=== PATIENT | male | born 1950 | race Caucasian/White ===

== ENCOUNTER 2023-01-26 09:11 | Outpatient (OUT) | payer MEDICARE, SELFPAY ==
[2023-01-26 09:47] LABS: Basophils Absolute Auto 0.1 10^3/uL (0.0-0.1); Basophils Percent Auto 1.4 % (0.2-2.0); Eosinophils Absolute Auto 0.2 10^3/uL (0.0-0.7); Eosinophils Percent Auto 3.9 % (0.9-7.0); Hematocrit 43.7 % (42.0-54.0); Hemoglobin 14.5 g/dL (14.0-18.0); Immature Granulocytes Abs Auto 0.01 10^3/uL (0.00-0.03); Immature Granulocytes Pct Auto 0.2 % (0.0-0.5); Lymphocytes Absolute Auto 1.3 10^3/uL (1.2-3.8); Mean Corpuscular HGB Conc 33.2 g/dL (29.9-35.2); Mean Corpuscular Hemoglobin 27.9 pg (25.9-34.0); Mean Platelet Volume 10.9 fL (9.5-13.5); Monocytes Absolute Auto 0.4 10^3/uL (0.3-0.8); Monocytes Percent Auto 8.2 % (1.7-12.0); Neutrophils Absolute Auto 3.2 10^3/uL (1.4-6.5); Neutrophils Percent Auto 61.3 % (43.0-75.0); Platelet Count 200 10^3/uL (150-450); Red Cell Distribution Width 13.4 % (11.0-15.0); White Blood Count 5.1 10^3/uL (4.0-11.0)
[2023-01-26 10:31] LABS: Alanine Aminotransferase 42 U/L (16-63); Albumin Level 3.9 g/dL (3.4-5.0); Alkaline Phosphatase 30 U/L (46-116); Anion Gap 13.7; Aspartate Amino Transferase 20 U/L (15-37); BUN Creatinine Ratio 10.8; Bilirubin Direct 0.2 mg/dL (0.0-0.2); Carbon Dioxide 26.6 mmol/L (21.0-32.0); Chloride 102 mmol/L (98-107); Cholesterol 98 mg/dL (<=200); Estimated GFR (African America >60 (>=60); Estimated GFR (Non-African Ame >60 (>=60); Globulin 3.9 g/dL; Glucose 114 mg/dL (74-106); HDL Cholesterol 50 mg/dL (40-60); LDL Cholesterol Calculated 25.4 mg/dL; Potassium 4.3 mmol/L (3.5-5.1); Sodium 138 mmol/L (136-145); Thyroid Stimulating Hormone 2.857 uIU/mL (0.358-3.740); Total Protein 7.8 g/dL (6.4-8.2); Triglycerides 113 mg/dL (<=150); VLDL CHOLESTEROL 22.6 mg/dL
[2023-01-26 12:49] LABS: Prostate Specific Antigen Scrn 2.51 ng/mL (<=4.00)
[2023-01-27 19:42] LABS: Estimated Average Glucose 123 mg/dL; Glycohemoglobin A1C 5.9 % (4.5-6.2)
== END 2023-01-26 09:12 | disposition home or self-care (01) ==
LOC: LAB 09:18
PROVIDERS: PCP Family Medicine; Visit Provider Family Medicine
DX: I10 Essential (primary) hypertension (principal); Z79.899 Other long term (current) drug therapy; I67.9 Cerebrovascular disease, unspecified; Z12.5 Encounter for screening for malignant neoplasm of prostate; E66.9 Obesity, unspecified; Z68.30 Body mass index [BMI] 30.0-30.9, adult; R73.03 Prediabetes
CPT/HCPCS: 36415; 80048; 80061; 80076; 83036; 84443; 85025; G0103

== ENCOUNTER 2024-01-30 08:53 | Outpatient (OUT) | payer MEDICARE, SELFPAY ==
[2024-01-30 09:35] LABS: Basophils Absolute Auto 0.1 10^3/uL (0.0-0.1); Basophils Percent Auto 1.6 % (0.2-2.0); Eosinophils Absolute Auto 0.3 10^3/uL (0.0-0.7); Eosinophils Percent Auto 5.3 % (0.9-7.0); Hematocrit 42.9 % (42.0-54.0); Hemoglobin 14.1 g/dL (14.0-18.0); Immature Granulocytes Abs Auto 0.01 10^3/uL (0.00-0.03); Immature Granulocytes Pct Auto 0.2 % (0.0-0.5); Lymphocytes Absolute Auto 1.5 10^3/uL (1.2-3.8); Lymphocytes Percent Auto 29.2 % (20.5-60.0); Mean Corpuscular HGB Conc 32.9 g/dL (29.9-35.2); Mean Corpuscular Volume 85.1 fL (80.0-94.0); Mean Platelet Volume 11.5 fL (9.5-13.5); Monocytes Absolute Auto 0.5 10^3/uL (0.3-0.8); Monocytes Percent Auto 8.9 % (1.7-12.0); Neutrophils Absolute Auto 2.8 10^3/uL (1.4-6.5); Neutrophils Percent Auto 54.8 % (43.0-75.0); Platelet Count 187 10^3/uL (150-450); Red Blood Count 5.04 10^6/uL (4.70-6.10); White Blood Count 5.1 10^3/uL (4.0-11.0)
[2024-01-30 09:41] LABS: Estimated Average Glucose 114 mg/dL; Glycohemoglobin A1C 5.6 % (4.5-6.2)
[2024-01-30 11:18] LABS: Alanine Aminotransferase 44 U/L (16-63); Albumin Level 3.6 g/dL (3.4-5.0); Alkaline Phosphatase 32 U/L (46-116); Anion Gap 11.5; Aspartate Amino Transferase 20 U/L (15-37); BUN Creatinine Ratio 11.5; Bilirubin Direct 0.2 mg/dL (0.0-0.2); Bilirubin Total 1.5 mg/dL (0.2-1.0); Calcium 8.8 mg/dL (8.5-10.1); Carbon Dioxide 28.5 mmol/L (21.0-32.0); Chloride 103 mmol/L (98-107); Chol HDL Ratio 2.3; Cholesterol 106 mg/dL (<=200); Estimated GFR (African America >60 (>=60); Estimated GFR (Non-African Ame >60 (>=60); Globulin 3.7 g/dL; Glucose 107 mg/dL (74-106); HDL Cholesterol 46 mg/dL (40-60); LDL Cholesterol Calculated 37.4 mg/dL; Sodium 139 mmol/L (136-145); Total Protein 7.3 g/dL (6.4-8.2); Triglycerides 113 mg/dL (<=150); VLDL CHOLESTEROL 22.6 mg/dL
== END 2024-01-30 08:54 | disposition home or self-care (01) ==
LOC: LAB 08:56
PROVIDERS: PCP Family Medicine; Visit Provider Family Medicine
DX: R73.03 Prediabetes (principal); I10 Essential (primary) hypertension; Z79.899 Other long term (current) drug therapy; I67.9 Cerebrovascular disease, unspecified; Z12.5 Encounter for screening for malignant neoplasm of prostate
CPT/HCPCS: 36415; 80048; 80061; 80076; 83036; 85025; G0103

== ENCOUNTER 2025-01-31 08:13 | Outpatient (OUT) | payer MEDICARE, SELFPAY ==
--- OUTSIDE RECORDS SUMMARY | 2025-01-31 08:18 | XMS_ITS | Encounter Summary ---
Author Organization [facility] Address [address] [place] [address] Care Team Providers Care Modeling Teacher Name Role Phone Davidson Lees MD Primary Care Provider [phone] Davidson Lees MD Unavailable Encounter Details Date Type Department Care Team (Late st Contact Info) Description 01/28/2024 External Result Encounter [facility] External Department Unsolicited Davidson Lees MD [address] [place] [address] Social History Tobacco Use Types Packs/Day Years Used Date Smoking Tobacco: Never Smokeless Tobacco: Never [id number] Health Literacy Answer Date Recor ded How often do you need to hav e someone help you when you read instructions, pamphlets, or other written material from your doctor or pharmacy? Never 01/06/2024 Social Connection and Isolation Panel [NHANES] A nswer Date Recorded In a typical week, how many times do you talk on the phone with family, friends, or neighbors? Three times a week 01/06/2024 How often do you get togethe r with friends or relatives? Twice a week 01/06/2024 How often do you attend chur ch or nondenominational services? Never 01/06/2024 Do you belong to any clubs o r organizations such as buddhism groups, unions, fraternal or athletic groups, or school groups? No 01/06/2024 How often do you attend meet ings of the clubs or organizations you belong to? Never 01/06/2024 Are you , , di vorced, , never , or living with a partner? 01/06/2024 AUDIT-C Answer Date Recorded Q1: How often do you have a drink containing alc ohol? Monthly or less 01/06/2024 Q2: How many drinks containi ng alcohol do you have on a typical day when you are drinking? 1 or 2 01/06/2024 Q3: How often do you have si x or more drinks on one occasion? Monthly 01/06/2024 Overall Financial Resource Strain (CARDIA) Answe r Date Recorded How hard is it for you to pa y for the very basics like food, housing, medical care, and heating? Not hard at all 01/06/2024 [facility] - Occupational Stress Questionnaire Answer Date Recorded Do you feel stress - tense, restless, nervous, or anxious, or unable to sleep at night because your mind is troubled all the time - these days? Not at all 01/06/2024 Exercise Vital Sign Answer Date Recorde d On average, how many days pe r week do you engage in moderate to strenuous exercise (like a brisk walk)? 3 days 01/06/2024 On average, how many minutes do you engage in exercise at this level? 30 min 01/06/2024 Hunger Vital Sign Answer Date Recorded Within the past 12 months, y ou worried that your food would run out before you got the money to buy more. Never true 01/06/20 24 Within the past 12 months, t he food you bought just didn't last and you didn't have money to get more. Never true 01/06/2024 PRAPARE - Transportation Answer Date Re corded In the past 12 months, has l ack of transportation kept you from medical appointments or from getting medications? No 12/08 In the past 12 months, has l ack of transportation kept you from meetings, work, or from getting things needed for daily living? No 01/06/2024 Housing Stability Vital Sign Answer Bud e Recorded In the last 12 months, was t here a time when you were not able to pay the mortgage or rent on time? No 01/06/2024 In the past 12 months, how m any times have you moved where you were living? 2 01/06/2024 At any time in the past 12 m [facility], were you homeless or living in a intermediate (including now)? No 01/06/2024 Sex and Gender Information Value Date Recorded Sex Assigned at Not on file Legal Sex Male 7:28 PM EDT Gender Identity Not on file Sexual Orientation Not on file documented as of this encounter Plan of Treatment Upcoming Encounters Date Type Department Care Team (Late st Contact Info) Description 07/12/2025 9:30 AM EST Office Visit [facility] [address] [place] [address] Davidson Lees MD [address] [place] [address] documented as of this encounter Procedures Procedure Name Priority Date/Time Associated Diagnosis Comments VASC US PVR/SEGMENTAL PRESSURES LOWER 01/28/2024 2:43 PM EDT documented in this encounter Results * VASC US PVR/SEGMENTAL PRESSURES LOWER (01/28/2024 2:43 PM EDT) Anatomical Region Laterality Modality Right Ultrasound 01/28/2024 2:43 PM EDT Impressions 01/28/2024 2:46 PM EDT NO HEMODYNAMICALLY SIGNIFICANT PERIPHERAL VASCULAR OCCLUSIVE DISEASE AT REST IN EITHER LOWER EXTREMITY. Impression dictated by: Markus Haywood M.D.01/28/2024 2:44 PM Dictation Location: [place] [address] Tech: Reanna Howell Transcribed By: ARVIN 01/28/24 1444 Dictated By: Markus Haywood MD 01/28/24 1443 Signed By: <Electronically signed by MD Markus Haywood in OV> 01/28/24 1444 Narrative 01/28/2024 2:46 PM EDT [facility] [place] [address] Ultrasound Report Signed Patient: Alfred Cooper MR#: [id number] : 1950 Acct:[id number] Age/Sex: 73 / M ADM Date: 01/28/24 Loc: Room: Type: [facility] Attending Dr: Davidson Lees MD Ordering Provider: Davidson Lees MD Date of Service: 01/28/24 US/US arterial pvr rest LE: I67.9, I73.9 Copies to: Davidson Lees MD LOWER EXTREMITY SEGMENTAL ARTERIAL DOPSCAN (PVR) INDICATION: Leg pain PROCEDURE: Right arm blood pressure is 124 , left is 128 . Pressures throughout the right leg are 157 at the low thigh, 158 at the calf, 152 at the ankle using the posterior tibial artery, and 138 at the ankle using the dorsalis pedis artery with ankle-brachial index of 1.19 1.08 . Pressures throughout the left leg are 157 at the low thigh, 138 at the calf and 137 at the ankle using the posterior tibial artery, and 124 at the ankle using the dorsalis pedis artery with ankle-brachial index of 1.07 0.97 . Wave forms by plethysmography are normal. US/US arterial pvr rest LE Procedure Note Markus Haywood MD - 01/28/2024 [facility] Main [place] [address] [place] [address] Ultrasound Report Signed Patient: Alfred Cooper LMR#: [id number] : 1950Acct:[id number] Age/Sex: 73 / MADM Date: 01/28/24 Loc: Room:Type: [facility] Attending Dr: Davidson Lees MD Ordering Provider: Davidson Lees MD Date of Service: 01/28/24 US/US arterial pvr rest LE: I67.9, I73.9 Copies to: Davidson Lees MD LOWER EXTREMITY SEGMENTAL ARTERIAL DOPSCAN (PVR) INDICATION: Leg pain PROCEDURE: Right arm blood pressure is 124 , left is 128 . Pressuresthroughout the right leg are 157 at the low thigh, 158 at the calf, 152 at the ankle usingthe posterior tibial artery, and 138 at the ankle using the dorsalis pedis artery withankle-brachial index of 1.19 1.08 . Pressures throughout the left leg are 157 at the low thigh, 138 atthe calf and 137 at the ankle using the posterior tibial artery, and 124 at the ankle using thedorsalis pedis artery with ankle-brachial index of 1.07 0.97 . Wave forms by plethysmography are normal. US/US arterial pvr rest LE IMPRESSION: NO HEMODYNAMICALLY SIGNIFICANT PERIPHERAL VASCULAR OCCLUSIVE DISEASE ATREST IN EITHER LOWER EXTREMITY. Impression dictated by: Markus Haywood M.D.01/28/2024 2:44 PM Dictation Location: [place] [address] Tech: Reanna Rodriguezgerry Transcribed By: ARVIN 01/28/24 1444 Dictated By: Markus Haywood MD 01/28/24 1443 Signed By: <Electronically signed by MD Markus Haywood in OV> 01/28/24 1444 Davidson Lees MD IMG US PROCEDURES Final Result documented in this encounter Visit Diagnoses Not on filedocumented in this encounter Care Teams Modeling 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 Specialty Start Date End Date Davidson Lees MD [address] [place] [address] PCP - General Family Medicine 06/29/23 Davidson Lees MD [address] [place] [address] PCP - ACO Reach 07/15/24 documented as of this encounter
--- OUTSIDE RECORDS SUMMARY | 2025-01-31 08:18 | XMS_ITS | Encounter Summary ---
Author Organization [facility] Address [address] [place] [address] Care Team Providers Care High [employer] Art Teacher Name Role Phone Davidson Lees MD Primary Care Provider [phone] Davidson Lees MD Unavailable Encounter Details Date Type Department Care Team (Late st Contact Info) Description 01/29/2024 [facility] [address] [place] [address] Davidson Lees MD [address] [place] [address] Social History Tobacco Use Types Packs/Day Years [...] often do you attend chur ch or baptist services? Never 01/06/2024 Do you belong to any clubs o r organizations such as mandaeism groups, unions, fraternal or athletic groups, or [...] and heating? Not hard at all 01/06/2024 [facility] - Occupational Stress [...] any time in the past 12 m [facility], were you homeless or living in a correction (including now)? No 01/06/2024 Sex and Gender Information Value Date Recorded Sex Assigned at Not on file Legal Sex Male 7:28 PM EDT Gender Identity Not on file Sexual Orientation Not on file documented as of this encounter Plan of Treatment Upcoming Encounters Date Type Department Care Team (Late st Contact Info) Description 07/12/2025 9:30 AM EST Office Visit [facility] [address] [place] [address] Davidson Lees MD [address] [place] [address] documented as of this encounter Procedures Procedure Name Priority Date/Time Associated Diagnosis Comments VASC US UPPER EXTREMITY ARTERIAL DUPLEX BILATERAL WITH DOPPLER Routine 01/29/2024 9:55 AM EDT documented in this encounter Results * Vascular US upper extremity arterial duplex bilateral with Doppler (01/29/2024 9:55 AM EDT) Anatomical Region Laterality Modality Upper Extremities Ultrasound us Davidson Lees MD IMG US PROCEDURES Final Result documented in this encounter Visit Diagnoses Not on filedocumented in this encounter Care Teams High [employer] Art 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 Specialty Start Date End Date Davidson Lees MD [address] [place] [place] [address] PCP - General Family Medicine 06/29/23 Davidson Lees MD [address] [place] [address] PCP - ACO Reach 07/15/24 documented as of this encounter
--- OUTSIDE RECORDS SUMMARY | 2025-01-31 08:19 | XMS_ITS | Encounter Summary ---
Author Organization [facility] Address [address] [place] [address] Care Team Providers Care Deburring And Tooling Machine Operator Name Role Phone Davidson Lees MD Primary Care Provider [phone] Davidson Lees MD Unavailable Reason for Visit * Reason Comments Med Refill Encounter Details Date Type Department Care Team (Late st Contact Info) Description 01/20[facility]20[facility] [address] [place] [address] Davidson Lees MD [address] [place] [address] Essential hypertension, benign ; Cerebrovascular disease Social History Tobacco Use Types Packs/Day Years [...] often do you attend chur ch or oriental orthodox services? Never 01/06/2024 Do you belong to any clubs o r organizations such as confucianism groups, unions, fraternal or athletic groups, or [...] and heating? Not hard at all 01/06/2024 PHQ-2 Answer Date Recorded Patient Health Questionnaire-2 Score 0 01/09/2025 [facility] - Occupational Stress [...] any time in the past 12 m [facility], were you homeless or living in a detention (including now)? No 01/06/2024 Sex and Gender Information Value Date Recorded Sex Assigned at Not on file Legal Sex Male 7:28 PM EDT Gender Identity Not on file Sexual Orientation Not on file documented as of this encounter Miscellaneous Notes * Telephone Encounter - OTILIO GORE - 01/20/2025 10:19 AM EDT MEDICATION SENT TO [facility] documented in this encounter Plan of Treatment Upcoming Encounters Date Type Department Care Team (Late st Contact Info) Description 07/12/2025 9:30 AM EST [facility] [address] [place] [address] Davidson Lees MD [address] [place] [address] documented as of this encounter Visit Diagnoses Diagnosis Essential hypertension, benign Essential hypertension, benign Cerebrovascular disease Unspecified cerebrovascular disease documented in this encounter Additional Health Concerns Assessment Noted Time PHQ-9 Depression Total Score: 2 01/10/20 25 9:00 AM EDT documented as of this encounter Care Teams Deburring And Tooling Machine Operator Relationship Specialty Start Date End Date Davidson Lees MD [address] [place] [address] PCP - General Family Medicine 06/29/23 Davidson Lees MD [address] [place] [address] PCP - ACO Reach 07/15/24 documented as of this encounter
--- OUTSIDE RECORDS SUMMARY | 2025-01-31 08:19 | XMS_ITS | Clinical Summary ---
Author Organization [facility] Address [address] [place] [address] [place] [address] Care Team Providers Care Oil Well Driller Name Role Phone Davidson Lees MD Primary Care Provider [phone] Davidson Lees MD Unavailable Allergies No known active allergies Medications loratadine (Claritin) 10 MG tablet Take 10 mg by mouth Daily Active atorvastatin (Lipitor) 40 MG tabletIndicati ons:Cerebrovas cular disease TAKE 1 TABLET BY MOUTH AT BEDTIME 90 tablet 5 Active lisinopril 5 MG tabletIndicati ons:Essential hypertension, benign Take 1 tablet by mouth once daily 90 tablet 5 Active oxybutynin XL (Ditropan-XL) 15 MG 24 hr tabletIndicati ons:Essential hypertension, benign Take 1 tablet by mouth once daily 90 tablet 5 Active clopidogrel (Plavix) 75 MG tabletIndicati ons:Cerebrovas cular disease Take 1 tablet by mouth once daily 90 tablet 5 Active atorvastatin (Lipitor) 40 MG tabletIndicati ons:Cerebrovas cular disease Take 1 tablet (40 mg) by mouth at bedtime 90 tablet 3 5 01/20/20 25 Discontinued lisinopril 5 MG tabletIndicati ons:Essential hypertension, benign Take 1 tablet by mouth once daily 90 tablet 5 01/21/20 25 Discontinued clopidogrel (Plavix) 75 MG tabletIndicati ons:Cerebrovas cular disease Take 1 tablet by mouth once daily 90 tablet 5 01/21/20 25 Discontinued oxybutynin XL (Ditropan-XL) 15 MG 24 hr tabletIndicati ons:Essential hypertension, benign Take 1 tablet by mouth once daily 90 tablet 5 01/21/20 25 Discontinued Active Problems Problem Noted Date Diagnosed Date Medicare annual wellness visit, subsequent 01/09 Assessment & Plan (01/09/2025 10:32 AM EDT): Due for labs. Discussed proper diet and regular aerobic exercise. Need aerobic exercise 5-6 days a week for 30 minutes at a time. Smaller portions and limit total calories. Cologuard normal July 2024. Tetanus every 10 years. Advised not to smoke. Class 1 obesity with serious comorbidity and body mass index (BMI) of 31.0 to 31.9 in adult 01/09/2025 Essential hypertension, benign 06/29/2023 Assessment & Plan (07/11/2024 10:33 AM EST): BP controlled and monitor PRN. Assessment & Plan (01/12/2024 10:50 AM EDT): BP controlled and monitor PRN. Assessment & Plan (06/29/2023 2:07 PM EST): BP controlled and monitor PRN. Cerebrovascular disease 06/29/2023 Prediabetes 06/29/2023 Seasonal allergic rhinitis due to pollen 024 Assessment & Plan (07/11/2024 10:33 AM EST): Symptoms controlled with medication and continue. Assessment & Plan (01/12/2024 10:50 AM EDT): Symptoms controlled with medication and continue. Assessment & Plan (06/29/2023 2:08 PM EST): Symptoms controlled with medication and continue. Encounter for long-term (current) use of medicat ions 06/29/2023 Screening PSA (prostate specific antigen) 2023 Stress incontinence, male 06/29/2023 Assessment & Plan (07/11/2024 10:33 AM EST): Urinary symptoms stable and continue oxybutynin. Assessment & Plan (01/12/2024 10:50 AM EDT): Urinary symptoms stable and continue oxybutynin. Assessment & Plan (06/29/2023 2:08 PM EST): Urinary symptoms stable and continue oxybutynin. Resolved Problems Problem Noted Date Diagnosed Date Resolved Date Intermittent claudication 01/12/2024 Assessment & Plan (01/12/2024 10:51 AM EDT): C/o fatigue with activity and possible PVD. Check arterial US. Continue lipitor and plavix. Encounters Date Type Department Care Team Description 01/20/2025 Refill [facility] [address] [place] [address] Davidson Lees MD Essential hypertension, benign ; Cerebrovascular disease 01/19/2025 Refill [facility] [address] [place] [address] Davidson Lees MD Cerebrovascular disease 01/09/2025 9:30 AM EDT Office Visit [facility] [address] [place] [phone] Davidson Lees MD Medicare annual wellness visit, subsequent (Primary Dx); Prediabetes; Class 1 obesity due to excess calories with serious comorbidity and body mass index (BMI) of 31.0 to 31.9 in adult; Encounter for long-term (current) use of medications; Essential hypertension, benign ; Screening PSA (prostate specific antigen) 01/09/2025 Bamboo flowsheet [facility] [address] [place] [phone] Davdison Lees MD from Last 3 Months Family History Medical History Relation Name Comments Cancer Father Prostate cancer Father Diabetes Mother Hypertension Mother Relation Name Status Comments Father Mother Social History Tobacco Use Types Packs/Day Years [...] often do you attend chur ch or jew services? Never 01/06/2024 Do you belong to any clubs o r organizations such as restorationism groups, unions, fraternal or athletic groups, or [...] Recorded Patient Health Questionnaire-2 Score 0 01/09/2025 [facility]at ional Health - Occupational [...] time in the past 12 m [facility], were you homeless or living in a fpc (including now)? No 01/06/2024 Sex and Gender Information Value Date Recorded Sex Assigned at Not on file Legal Sex Male 7:28 PM EDT Gender Identity Not on file Sexual Orientation Not on file Last Filed Vital Signs Vital Sign Reading Time Taken Comments Blood Pressure 136/68 01/09/2025 9:50 AM EDT Pulse 79 01/09/2025 9:50 AM EDT Temperature 36.2 C (97.1 F) 01/09/2025 9:50 AM EDT Respiratory Rate 18 01/09/2025 9:50 AM EDT Oxygen Saturation 97% 01/09/2025 9:50 AM EDT Inhaled Oxygen Concentration - - Weight 97.1 kg (214 lb) 01/09/2025 9:50 AM EDT Height 175.3 cm (5' 9 ) 01/09/2025 9:50 AM EDT Body Mass Index 31.6 01/09/2025 9:50 AM EDT Plan of Treatment Upcoming Encounters Date Type Department Care Team (Late st Contact Info) Description 07/12/2025 9:30 AM EST Office Visit [facility] [address] [place] [address] Davidson Lees MD [address] [place] [address] Health Maintenance Due Date Last Done Comments CT Colonography 1950 Colonoscopy 1950 FIT 1950 FOBT 1950 Sigmoidoscopy 1950 Pneumococcal Vaccine: 65+ Years (1 of 1 - PCV) Influenza Vaccine (#1) 2025 Medicare Annual Wellness (AWV) 01/09/2026 01/09/2025 Colorectal Cancer Screening 07/15/2027 FIT-DNA 07/15/2027 07/15/2024 Procedures Procedure Name Priority Date/Time Associated Diagnosis Comments LAB COLOGUARD COLON CANCER SCREEN Routine 07/15/2024 9:00 AM EST Colon cancer screening from Last 3 Months or Most Recently Relevant to Health Maintenance Results * Cologuard?? colon cancer screening (07/15/2024 9:00 AM EST) NONINV COLON CA DNA+OCC BLD SCRN STL-IMP Negative Negative 07/21/2024 1:01 PM EST [facility] (CLIA #:[id number]) Comment: NEGATIVE TEST RESULT. A negative Cologuard result indicates a low likelihood that a colorectal cancer (CRC) or advanced adenoma (adenomatous polyps with more advanced pre-malignant features) is present. The chance that a person with a negative Cologuard test has a colorectal cancer is less than 1 in 1500 (negative predictive value >99.9%) or has an advanced adenoma is less than 5.3% (negative predictive value 94.7%). These data are based on a prospective cross-sectional study of 10,000 individuals at average risk for colorectal cancer who were screened with both Cologuard and colonoscopy. (Devan Boogie al, N Engl J Med 2014;370(14):6732-0120) The normal value (reference range) for this assay is negative. COLOGUARD RE-SCREENING RECOMMENDATION: Periodic colorectal cancer screening is an important part of preventive healthcare for asymptomatic individuals at average risk for colorectal cancer. Following a negative Cologuard result, the [place] [employer] and U.S. Multi-Society Task Force screening guidelines recommend a Cologuard re-screening interval of 3 years. References: [place] [employer] Guideline for Colorectal Cancer Screening: https://www.cancer.org/cancer/yqwei-htnrjx-gwdqqk/orkunnjty-llkshxpsi-qhlcfee/ac s-rec ommendations.html.; Dwayne DK, Renee CR, Fred AugustK, Colorectal Cancer Screening: Recommendations for Physicians and Patients from the U.S. Multi-Society Task Force on Colorectal Cancer Screening , Am J Gastroenterology 2017; 112:1110-8092. TEST DESCRIPTION: Composite algorithmic analysis of stool DNA-biomarkers with hemoglobin immunoassay. Quantitative values of individual biomarkers are not reportable and are not associated with individual biomarker result reference ranges. Cologuard is intended for colorectal cancer screening of adults of either sex, 45 years or older, who are at average-risk for colorectal cancer (CRC). Cologuard has been approved for use by the U.S. FDA. The performance of Cologuard was established in a cross sectional study of average-risk adults aged 50-84. Cologuard performance in patients ages 45 to 49 years was estimated by sub-group analysis of near-age groups. Colonoscopies performed for a positive result may find as the most clinically significant lesion: colorectal cancer [4.0%], advanced adenoma (including sessile serrated polyps greater than or equal to 1cm diameter) [20%] or non- advanced adenoma [31%]; or no colorectal neoplasia [45%]. These estimates are derived from a prospective cross-sectional screening study of 10,000 individuals at average risk for colorectal cancer who were screened with both Cologuard and colonoscopy. (Devan Boogie al, N Engl J Med 2014;370(14):9228-1664.) Cologuard may produce a false negative or false positive result (no colorectal cancer or precancerous polyp present at colonoscopy follow up). A negative Cologuard test result does not guarantee the absence of CRC or advanced adenoma (pre-cancer). The current Cologuard screening interval is every 3 years. ([place] [employer] and U.S. Multi-Society Task Force). Cologuard performance data in a 10,000 patient pivotal study using colonoscopy as the reference method can be accessed at the following location: www.EasyRun/results. Additional description of the Cologuard test process, warnings and precautions can be found at www.RetailVectorrd.com. Stool specimen (specimen) 07/15/2024 9:00 AM EST 07/16/2024 7:30 AM EST Davidson Lees MD LAB MOLECULAR DIAGNOSTICS ORDERA SONIA Final Result [facility] (CLIA #:[id number]) [place] [address], from Last 3 Months or Most Recently Relevant to Health Maintenance Insurance MEDICARE T Care Teams Oil Well Driller Relationship Specialty Start Date End Date Davidson Lees MD [address] [place] [address] PCP - General Family Medicine 06/29/23 Davidsno Lees MD [address] [place] [address] [facility] - ACO Reach 07/15/24
--- OUTSIDE RECORDS SUMMARY | 2025-01-31 08:19 | XMS_ITS | Encounter Summary ---
Author Organization [facility] Address [address] [place] [address] Care Team Providers Care Control Panel Assembler Name Role Phone Davidson Lees MD Primary Care Provider [phone] Davidson Lees MD Unavailable Reason for Visit * Reason Comments Med Refill Encounter Details Date Type Department Care Team (Late st Contact Info) Description 01/19/2025 [facility] [address] [place] [address] Davidson Lees MD [address] [place] [id number] Cerebrovascular disease Social History Tobacco Use Types [...] often do you attend chur ch or episcopalian services? Never 01/06/2024 Do you belong to any clubs o r organizations such as alevism groups, unions, fraternal or athletic groups, or [...] Recorded Patient Health Questionnaire-2 Score 0 01/09/2025 [facility] Occup[facility] - Occupational Stress [...] any time in the past 12 m [facility], were you homeless or living in a skilled nursing (including now)? No 01/06/2024 Sex and Gender Information Value Date Recorded Sex Assigned at Not on file Legal Sex Male 7:28 PM EDT Gender Identity Not on file Sexual Orientation Not on file documented as of this encounter Miscellaneous Notes * Telephone Encounter - OTILIO GORE - 01/19/2025 3:17 PM EDT [facility] [place] documented in this encounter Plan of Treatment Upcoming Encounters Date Type Department Care Team (Late st Contact Info) Description 07/12/2025 9:30 AM EST Office [facility] [address] [place] [address] Davidson Lees MD [address] [place] [phone] documented as of this encounter Visit Diagnoses Diagnosis Cerebrovascular disease Unspecified cerebrovascular disease documented in this encounter Additional Health Concerns Assessment Noted Time PHQ-9 Depression Total Score: 2 01/10/20 25 9:00 AM EDT documented as of this encounter Care Teams Control Panel Assembler Relationship Specialty Start Date End Date Davidson Lees MD [address] [place] [phone] PCP - General Family Medicine 06/29/23 Davidson Lees MD [address] [place] [phone] PCP - ACO Reach 07/15/24 documented as of this encounter
--- OUTSIDE RECORDS SUMMARY | 2025-01-31 08:21 | XMS_ITS | CCD ---
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 Name Role Phone DR DAVIDSON VELASCO Admitting Unavailable ROD, DR DAVIDSON Lamar Attending Unavailable ROD, DR DAVIDSON Lamar Primary Care Unavailable ROD, DR DAVIDSON Lamar Consulting Unavailable ROD, DR DAVIDSON Lamar Admitting Unavailable ROD, DR DAVIDSON Lamar Attending Unavailable ROD, DR DAVIDSON Lamar Primary Care Unavailable ROD, DR DAVIDSON Lamar Consulting Unavailable MD Davidson Velasco Attending Provider [phone] Davidson Velasco Attending Unavailable Davidson Velasco Admitting Unavailable Davidson Velasco MD Primary Care Provider Davidson Velasco MD Unavailable DAVIDSON VELASCO Attending Unavailable ROD, DAVIDSON Attending Unavailable DAVIDSON VELASCO Attending Unavailable Medications Current Medications Medication Drug Class(es) Dates Sig (Normalized) Sig (Original) atorvastatin 40 mg oral tablet (10 sources) HMG-CoA Reductase Inhibitor Start: 08-01-2024 End: 08-01-2024 take 1 tablet by mouth at bedtime atorvastatin (Lipitor) 40 MG tablet Indications: Cerebrovascular disease Take 1 tablet (40 mg) by mouth at bedtime 90 tablet 3 08/01/2024 Active Start: 07-25-2024 take 1 tablet by josue th at bedtime atorvastatin (Lipitor) 40 MG tablet Indications: Cerebrovascular disease TAKE 1 TABLET BY MOUTH AT BEDTIME 90 tablet 07/25/2024 Active Start: 01-26-2024 take 1 tablet by josue th at bedtime atorvastatin (Lipitor) 40 MG tablet Indications: Cerebrovascular disease TAKE 1 TABLET BY MOUTH AT BEDTIME 90 tablet 01/26/2024 Active clopidogrel 75 mg oral tablet (10 sources) [id number] Platelet Inhibitor Start: 10-28-2024 take 1 tablet by mouth once daily clopidogrel (Plavix) 75 MG tablet Indications: Cerebrovascular disease Take 1 tablet by mouth once daily 90 tablet 10/28/2024 Active Start: 07-25-2024 End: 07-25-2024 take 1 tablet by mouth once daily clopidogrel (Plavix) 75 MG tablet Indications: Cerebrovascular disease Take 1 tablet (75 mg) by mouth Daily 90 tablet 07/25/2024 Active Start: 01-26-2024 take 1 tablet by josue th once daily clopidogrel (Plavix) 75 MG tablet Indications: Cerebrovascular disease Take 1 tablet by mouth once daily 90 tablet 01/26/2024 Active lisinopril 5 mg oral tablet (10 sources) Angiotensin Converting Enzyme Inhibitor Start: 10-28-2024 take 1 tablet by mouth once daily lisinopril 5 MG tablet Indications: Essential hypertension, benign Take 1 tablet by mouth once daily 90 tablet 10/28/2024 Active Start: 07-25-2024 End: 07-25-2024 take 1 tablet by mouth once daily lisinopril 5 MG tablet Indications: Essential hypertension, benign (CMS/HCC) Take 1 tablet (5 mg) by mouth Daily 90 tablet 07/25/2024 Active Start: 01-26-2024 take 1 tablet by josue th once daily lisinopril 5 MG tablet Indications: Essential hypertension, benign (CMS/HCC) Take 1 tablet by mouth once daily 90 tablet 01/26/2024 Active loratadine 10 mg oral tablet (9 sources) take 1 tablet by mouth once daily loratadine (Claritin) 10 MG tablet Take 10 mg by mouth Daily Active 24 hr oxybutynin chloride 15 mg extended release oral tablet (10 sources) Cholinergic Muscarinic Antagonist Start: 10-28-2024 take 1 tablet by mouth once daily oxybutynin XL (Ditropan-XL) 15 MG 24 hr tablet Indications: Essential hypertension, benign Take 1 tablet by mouth once daily 90 tablet 10/28/2024 Active Start: 07-25-2024 End: 07-25-2024 take 1 tablet by mouth once daily oxybutynin XL (Ditropan-XL) 15 MG 24 hr tablet Indications: Essential hypertension, benign (CMS/HCC) Take 1 tablet (15 mg) by mouth Daily 90 tablet 07/25/2024 Active Start: 01-26-2024 take 1 tablet by josue th once daily oxybutynin XL (Ditropan-XL) 15 MG 24 hr tablet Indications: Essential hypertension, benign (CMS/HCC) Take 1 tablet by mouth once daily 90 tablet 01/26/2024 Active Problems Active Problems Problem Classification Problem Date Documented Date Episodic/Chronic Diabetes mellitus without complication (11 sources) Prediabetes; Translations: [Prediabetes] Onset: 06-29-2023 06-29-2023 Episodic Essential hypertension (18 sources) Essential (primary) hypertension; Translations: [Benign essential hypertension] Onset: 06-26-2021 Chronic Genitourinary symptoms and ill-defined conditions (11 sources) Male urinary stress incontinence; Translations: [Stress incontinence (female) (male)] Onset: 06-29-2023 06-29-2023 Chronic Other aftercare (1 source) Other jail (current) drug therapy; Translations: [OTH SNF CURRENT DRUG THERAPY] Onset: 06-28-2021 Episodic Other aftercare (10 sources) Long-term current use of drug therapy; Translations: [Other intensive care anaesthetist (current) drug therapy] Onset: 06-29-2023 06-29-2023 Episodic Other and ill-defined cerebrovascular disease (1 source) Cerebrovascular disease, unspecified; Translations: [CEREBROVASCULAR DISEASE UNSPECIFIED] Onset: 06-28-2021 Chronic Other and ill-defined cerebrovascular disease (11 sources) Cerebrovascular disease; Translations: [Cerebrovascular disease, unspecified] Onset: 06-29-2023 06-29-2023 Chronic Other nutritional; endocrine; and metabolic disorders (2 sources) Obesity caused by energy imbalance; Translations: [Class 1 obesity due to excess calories with serious comorbidity and body mass index (BMI) of 31.0 to 31.9 in adult] 01-09-2025 Chronic Other nutritional; endocrine; and metabolic disorders (2 sources) Obesity; Translations: [Class 1 obesity with serious comorbidity and body mass index (BMI) of 31.0 to 31.9 in adult] Onset: 01-09-2025 01-09-2025 Chronic Other screening for suspected conditions (not mental disorders or infectious disease) (14 sources) Encounter for screening for malignant neoplasm of prostate; Translations: [Patient encounter status] Onset: 06-28-2021 06-29-2023 Episodic Other upper respiratory disease (11 sources) Allergic rhinitis due to pollen; Translations: [Allergic rhinitis due to pollen] Onset: 06-29-2023 06-29-2023 Chronic Unclassified (3 sources) CONTACT W/AND (SUSP) EXPOS COVID-19; Translations: [CONTACT W/AND (SUSP) EXPOS COVID-19] Onset: 07-10-2021 Past or Other Problems Problem Classification Problem Date Documented Da te Episodic/Chronic Mood disorders (2 sources) Mood disorders Onset: 01-09-2025 01-09-2025 Other aftercare (1 source) Patient encounter status; Translations: [Other jail (current) drug therapy] Onset: 06-29-2023 06-29-2023 Episodic Peripheral and visceral atherosclerosis (10 sources) Peripheral vascular disease, unspecified; Translations: [Intermittent claudication] Onset: 01-12-2024 Resolved: 07-11-2024 01-12-2024 Chronic Unclassified (1 source) CONTACT W/AND (SUSP) EXPOS COVID-19; Translations: [CONTACT W/AND (SUSP) EXPOS COVID-19] Onset: 07-08-2021 Results Test Name Value Interpretation Reference Range Facil ity ALL CBC WITH AUTO DIFFon BASOPHILS ABSOLUTE AUTO 0.1 [facility] Basophils/100 WBC (Bld) 1.6 % 0.2 - 2.0 % [facility] Eosinophils/100 WBC (Bld) 5.3 % 0.9 - 7.0 % [facility] Erythrocyte distribution width (RBC) [Ratio] 13.0 % 11.0 - 15.0 % [facility] Hematocrit (Bld) [Volume fraction] 42.9 % 42.0 - 54.0 % [facility] Hemoglobin (Bld) [Mass/Vol] 14.1 g/dL 14.0 - 18.0 g/dL [facility] IMMATURE GRANULOCYTES ABS AUTO 0.01 [facility] Immature granulocytes/100 WBC (Bld) 0.2 % 0.0 - 0.5 % [facility] LYMPHOCYTES ABSOLUTE AUTO 1.5 [facility] Lymphocytes/100 WBC (Bld) 29.2 % 20.5 - 60.0 % [facility] MCH (RBC) [Entitic mass] 28.0 pg 25.9 - 34.0 pg [facility] MCHC (RBC) [Mass/Vol] 32.9 g/dL 29.9 - 35.2 g/dL [facility] MCV (RBC) [Entitic vol] 85.1 fL 80.0 - 94.0 fL [facility] MONOCYTES ABSOLUTE AUTO 0.5 [facility] Monocytes/100 WBC (Bld) 8.9 % 1.7 - 12.0 % [facility] NEUTROPHILS ABSOLUTE AUTO 2.8 [facility] Neutrophils/100 WBC (Bld) 54.8 % 43.0 - 75.0 % [facility] Platelet mean volume (Bld) [Entitic vol] 11.5 fL 9.5 - 13.5 fL [facility] TBH EO # 0.3 [facility] PLT 187 [facility] RBC 5.04 [facility] WBC 5.1 [facility] US arterial pvr rest Dirk US arterial pvr rest LE [facility] Main [place] [address] [place] [address] Ultrasound Report Signed Patient: Alfred Cooper MR#: [id number] : 1950 Acct:[id number] Age/Sex: 73 / M ADM Date: 01/28/24 Loc: Room: Type: [facility] Attending Dr: Davidson Velasco MD Ordering Provider: Davidson Velasco MD Date of Service: 01/28/24 US/US arterial pvr rest LE: I67.9, I73.9 Copies to: Davidson Velasco MD LOWER EXTREMITY SEGMENTAL ARTERIAL DOPSCAN (PVR) [...] Markus Haywood M.D.01/28/2024 2:44 PM Dictation Location: [facility] Tech: Reanna Rodriguezlars Transcribed By: ARVIN 01/28/241443 Dictated By: Markus Haywood MD 01/28/241442 Signed By: 01/28/241443 Normal [facility]10 SARS-CoV-2 (COVID-19) RNA TAMIE+probe Ql (Unsp spec) Not detected Normal NOT DETECTED [facility] Comment on above: Result Comment: This test is not yet approved or cleared by the [place] FDA. When there are no FDA-approved or cleared tests available, and other criteria are met, FDA can make tests available under an emergency access mechanism called an Emergency Use Authorization (EUA). The EUA for this test is supported by the [place] of Health and Human Service's (HHS's) declaration that circumstances exist to justify the emergency use of in vitro diagnostics for the detection and/or diagnosis of the virus that causes COVID-19. This EUA will remain in effect (meaning this test can be used) for the duration of the COVID-19 declaration justifying emergency of IVDs, unless it is terminated or revoked by FDA (after which the test may no longer be used). When diagnostic testing is negative, the possibility of a false negative should be considered in the context of a patient's recent exposures and the presence of clinical signs and symptoms consistent with SARS-CoV-2. Performed By: #### C VDTB #### [facility] [address] [place] [address] Dr. Maximilian Baum CBC AUTO DIFFon 06-26-2021 BASO # 0.1 103/ul Normal 0.0-0.1 [facility] Comment on above: Performed By: #### C BC #### [facility] [address] [place] [address] Dr. Maximilian Baum Basophils/100 WBC (Bld) 1.3 % Normal 0.2-2.0 [facility] Comment on above: Performed By: #### C BC #### [facility] [address] [place] [address] Dr. Maximilian Baum EO # 0.2 103/ul Normal 0.0-0.7 [facility] Comment on above: Performed By: #### C BC #### [facility] [address] [place] [address] Dr. Maximilian Baum Eosinophils/100 WBC (Bld) 4.1 % Normal 0.9-7.0 [facility] Comment on above: Performed By: #### C BC #### [facility] [address] [place] [address] Dr. Maximilian Baum Erythrocyte distribution width (RBC) [Ratio] 13.5 % Normal 11.0-15.0 [facility] Comment on above: Performed By: #### C BC #### [facility] [address] [place] [address] Dr. Maximilian Baum Hematocrit (Bld) [Volume fraction] 44.1 % Normal 42.0-54.0 [facility] Comment on above: Performed By: #### C BC #### [facility] [address] [place] [address] Dr. Maximilian Baum Hemoglobin (Bld) [Mass/Vol] 14.1 g/dL Normal 14.0-18.0 [facility] Comment on above: Performed By: #### C BC #### [facility] [address] [place] [address] Dr. Maximilian Baum IG # 0.01 10e3/ul Normal 0.00-0.03 [facility] Comment on above: Performed By: #### C BC #### [facility] [address] [place] [address] Dr. Maximilian Baum IG % 0.2 % Normal 0.0-0.5 [facility] Comment on above: Performed By: #### C BC #### [facility] [address] [place] [address] Dr. Maximilian Baum LYMPH # 1.3 103/ul Normal 1.2-3.8 [facility] Comment on above: Performed By: #### C BC #### [facility] [address] [place] [address] Dr. Maximilian Baum Lymphocytes/100 WBC (Bld) 24.9 % Normal 20.5-60.0 [facility] Comment on above: Performed By: #### C BC #### [facility] [address] [place] [address] Dr. Maximilian Baum MANUAL DIFF REQ NO Normal [facility] Comment on above: Performed By: #### C BC #### [facility] [address] [place] [address] Dr. Maximilian Baum MCH (RBC) [Entitic mass] 27.3 pg Normal 25.9-34.0 [facility] Comment on above: Performed By: #### C BC #### [facility] [address] [place] [address] Dr. Maximilian Baum MCHC (RBC) [Mass/Vol] 32.0 g/dL Normal 29.9-35.2 [facility] Comment on above: Performed By: #### C BC #### [facility] [address] [place] [address] Dr. Maximilian Baum MCV (RBC) [Entitic vol] 85.5 fL Normal 80.0-94.0 [facility] Comment on above: Performed By: #### C BC #### [facility] [address] [place] [address] Dr. Maximilian Baum MONO # 0.5 103/ul Normal 0.3-0.8 [facility] Comment on above: Performed By: #### C BC #### [facility] [address] [place] [address] Dr. Maximilian Baum Monocytes/100 WBC (Bld) 8.7 % Normal 1.7-12.0 [facility] Comment on above: Performed By: #### C BC #### [facility] [address] [place] [address] Dr. Maximilian Baum NEUT # 3.3 103/ul Normal 1.4-6.5 [facility] Comment on above: Performed By: #### C BC #### [facility] [address] [place] [address] Dr. Maximilian Baum Neutrophils/100 WBC (Bld) 60.8 % Normal 43.0-75.0 [facility] Comment on above: Performed By: #### C BC #### [facility] [address] [place] [address] Dr. Maximilian Baum Platelet mean volume (Bld) [Entitic vol] 12.0 fL Normal 9.5-13.5 [facility] Comment on above: Performed By: #### C BC #### [facility] [address] [place] [address] Dr. Maximilian Baum PLT 179 103/ul Normal 150-450 [facility] Comment on above: Performed By: #### C BC #### [facility] [address] [place] [address] Dr. Maximilian Baum RBC 5.16 106/ul Normal 4.70-6.10 [facility] Comment on above: Performed By: #### C BC #### [facility] [address] [place] [address] Dr. Maximilian Baum WBC 5.4 103/ul Normal 4.0-11.0 [facility] Comment on above: Performed By: #### C BC #### [facility] [address] [place] [address] Dr. Maximilian Baum LIPID PROFILEon 06-26-2021 CHOL-HDL RATIO NORM SEE BELOW Normal [facility] Comment on above: Result Comment: 3.3 - 4.4 LOW RISK 4.4 - 7.1 AVERAGE RISK 7.1 - 11.0 MODERATE RISK >11.0 HIGH RISK Performed By: #### L IPID, AST, BMP, ALT #### [facility] [address] [place] [address] Dr. Maximilian Baum Cholesterol [Mass/Vol] 97 mg/dL Normal <=200 [facility] Comment on above: Performed By: #### L IPID, AST, BMP, ALT #### [facility] [address] [place] [address] Dr. Maximilian Baum Cholesterol in HDL [Mass/Vol] 42 mg/dL Normal [facility] Comment on above: Performed By: #### L IPID, AST, BMP, ALT #### [facility] [address] [address] [address] Maximilian Baum Cholesterol in LDL [Mass/Vol] 39.0 mg/dL Normal [facility] Comment on above: Performed By: #### L IPID, AST, BMP, ALT #### [facility] [address] [address] [address] aMximilian Baum Cholesterol.total/ Cholesterol in HDL [Mass ratio] 2.3 {ratio} Normal [facility] Comment on above: Performed By: #### L IPID, AST, BMP, ALT #### [facility] [address] [address] [address] Maximilian Baum HDL NORMAL > or = 60 mg/dl - LO W CARDIOVASCULAR RISK <40 mg/dl - HIGH CARDIOVASCULAR RISK Normal [facility] Comment on above: Performed By: #### L IPID, AST, BMP, ALT #### [facility] [address] [address] [address] Maximilian Baum LDL CALC NORMAL SEE BELOW Normal [facility] Comment on above: Result Comment: <100 mg/dl OPTIMAL 100 - 129 mg/dl NEAR OR ABOVE OPTIMAL 130 - 159 mg/dl BORDERLINE HIGH 160 - 189 mg/dl HIGH >190 mg/dl VERY HIGH Performed By: #### L IPID, AST, BMP, ALT #### [facility] [address] [place] [address] Dr. Maximilian Baum Triglyceride [Mass/Vol] 80 mg/dL Normal <=150 [facility] Comment on above: Performed By: #### L IPID, AST, BMP, ALT #### [facility] [address] [address] [address] Maximilian Baum VLDL CALC 16.0 mg/dL Normal [facility] Comment on above: Performed By: #### L IPID, AST, BMP, ALT #### [facility] [address] [address] [address] Maximilian Baum PROF CHEM 8 (BAS METB)on Anion gap [Moles/Vol] 10.5 mmol/L Normal [facility] Comment on above: Performed By: #### L IPID, AST, BMP, ALT #### [facility] [address] [address] [address] Maximilian Baum Calcium [Mass/Vol] 8.8 mg/dL Normal 8.4-10.2 [facility] Comment on above: Performed By: #### L IPID, AST, BMP, ALT #### [facility] [address] [address] [address] Maximilian Baum Chloride [Moles/Vol] 104 mmol/L Normal 98-107 [facility] Comment on above: Performed By: #### L IPID, AST, BMP, ALT #### [facility] [address] [address] [address] Maximilian Baum CO2 [Moles/Vol] 27.3 mmol/L Normal 22.0-30.0 [facility] Comment on above: Performed By: #### L IPID, AST, BMP, ALT #### [facility] [address] [place] [address] Dr. Maximilian Baum Creatinine [Mass/Vol] 1.21 mg/dL Normal 0.66-1.25 [facility] Comment on above: Performed By: #### L IPID, AST, BMP, ALT #### [facility] [address] [place] [address] Dr. Maximilian Baum EGFR-AF CYMRO >60 Normal >=60 [facility] Comment on above: Performed By: #### L IPID, AST, BMP, ALT #### [facility] [address] [address] [address] Maximilian Baum EGFR-NON AF CYMRO 59 mL/min/1.73m2 Critically low >=60 [facility] Comment on above: Performed By: #### L IPID, AST, BMP, ALT #### [facility] [address] [address] [address] Maximilian Baum Glucose [Mass/Vol] 101 mg/dL Normal 74-106 [facility] Comment on above: Performed By: #### L IPID, AST, BMP, ALT #### [facility] [address] [address] [address] Maximilian Baum Potassium [Moles/Vol] 3.8 mmol/L Normal 3.4-5.0 [facility] Comment on above: Performed By: #### L IPID, AST, BMP, ALT #### [facility] [address] [place] [address] Dr. Maximilian Baum Sodium [Moles/Vol] 138 mmol/L Normal 137-145 [facility] Comment on above: Performed By: #### L IPID, AST, BMP, ALT #### [facility] [address] [place] [address] Dr. Maximilian Baum Urea nitrogen [Mass/Vol] 17.0 mg/dL Normal 9.0-20.0 [facility] Comment on above: Performed By: #### L IPID, AST, BMP, ALT #### [facility] [address] [place] [address] Dr. Maximilian Baum Urea nitrogen/Creatinin e [Mass ratio] 14.0 mg/mg Normal [facility] Comment on above: Performed By: #### L IPID, AST, BMP, ALT #### [facility] [address] [place] [address] Dr. Maximilian Baum SGOTon 06-26-2021 AST [Catalytic activity/Vol] 24 U/L Normal 17-59 [facility] Comment on above: Performed By: #### L IPID, AST, BMP, ALT #### [facility] [address] [place] [address] Dr. Maximilian Baum SGPTon 06-26-2021 ALT [Catalytic activity/Vol] 37 U/L Normal 21-72 [facility] Comment on above: Performed By: #### L IPID, AST, BMP, ALT #### [facility] [address] [place] [address] Dr. Maximilian Baum Vital Signs Date Time Vital Sign Value Performing Clinician Lukas lity 01-09-2025 09:50-0400 Body height 175.3 cm Davidson Velasco MD Work Phone: [facility] 01-09-2025 09:50-0400 Body mass index (BMI) [Ratio] 31.6 kg/m2 Davidson Velasco MD Work Phone: [facility] 01-09-2025 09:50-0400 Body temperature 97.11 [degF] Davidson Velasco MD Work Phone: [facility] 01-09-2025 09:50-0400 Body weight 97.07 kg Davidson Velasco MD Work Phone: [facility] 01-09-2025 09:50-0400 Diastolic blood pressure 68 mm[Hg] Davidson Velasco MD Work Phone: [facility] 01-09-2025 09:50-0400 Heart rate 79 /min Davidosn Velasco MD Work Phone: [facility] 01-09-2025 09:50-0400 Respiratory rate 18 /min Davidson Velasco MD Work Phone: [facility] 01-09-2025 09:50-0400 SaO2% (BldA) [Mass fraction] 97 % Davidson Velasco MD Work Phone: [facility] 01-09-2025 09:50-0400 Systolic blood pressure 136 mm[Hg] Davidson Velasco MD Work Phone: [facility] 07-11-2024 09:53-0500 Body height 175.3 cm Davidson Velasco MD Work Phone: [facility] 07-11-2024 09:53-0500 Body mass index (BMI) [Ratio] 32.78 kg/m2 Davidson Velasco MD Work Phone: [facility] 07-11-2024 09:53-0500 Body temperature 97.11 [degF] Davidson Velasco MD Work Phone: [facility] 07-11-2024 09:53-0500 Body weight 100.7 kg Davidson Velasco MD Work Phone: [facility] 07-11-2024 09:53-0500 Diastolic blood pressure 66 mm[Hg] Davidson Velasco MD Work Phone: [facility] 07-11-2024 09:53-0500 Heart rate 82 /min Davidson Velasco MD Work Phone: [facility] 07-11-2024 09:53-0500 Respiratory rate 18 /min Davidson Velasco MD Work Phone: [facility] 07-11-2024 09:53-0500 SaO2% (BldA) [Mass fraction] 96 % Davidson Velasco MD Work Phone: [facility] 07-11-2024 09:53-0500 Systolic blood pressure 132 mm[Hg] Davidson Velasco MD Work Phone: [facility] Healthcare Encounters Encounter Date Encounter Type Care Provider Facility Start: 01-09-2025 End: 01-09-2025 Bamboo flowsheet Davidson Velasco MD Work Phone: [facility] Start: 01-09-2025 End: 01-09-2025 [employer] flowsheet Davidson Velasco MD Work Phone: [facility] Start: 01-09-2025 End: 01-09-2025 Patient encounter procedure Davidson Velasco MD Work Phone: [facility] Healthcare Work Phone: Start: 01-09-2025 End: 01-09-2025 Postop follow up visit related to original px Davidson Velasco MD Work Phone: [facility] Comment on above: Medicare annual well ness visit, subsequent (Primary Dx); Prediabetes; Class 1 obesity due to excess calories with serious comorbidity and body mass index (BMI) of 31.0 to 31.9 in adult; Encounter for long-term (current) use of medications; Essential hypertension, benign ; Screening PSA (prostate specific antigen) Start: 01-09-2025 End: 01-09-2025 ambulatory DAVIDSON VELASCO Not Available Start: 08-01-2024 End: 08-01-2024 Refill Davidson Velasco MD Work Phone: [facility] Comment on above: Cerebrovascular dise ase Start: 07-25-2024 End: 07-25-2024 Refill Davidson Velasco MD Work Phone: [facility] Comment on above: Cerebrovascular dise ase; Essential hypertension, benign (CMS/HCC) Start: 07-11-2024 End: 07-11-2024 Bamboo flowsheet Davidson Velasco MD Work Phone: [facility] Start: 07-11-2024 End: 07-11-2024 Bamboo flowsheet Davidson Velasco MD Work Phone: [facility] Start: 07-11-2024 End: 07-11-2024 Office outpatient visit 15 minutes Davidson Velasco MD Work Phone: [facility] Comment on above: Essential hypertensi on, benign (CMS/HCC) (Primary Dx); Stress incontinence, male; Seasonal allergic rhinitis due to pollen; Colon cancer screening Start: 07-11-2024 End: 07-11-2024 ambulatory DAVIDSON VELASCO Not Available Start: 01-30-2024 End: 01-30-2024 Clinisync Result Encounter Davidson Velasco MD Work Phone: [facility] Unsolicited Start: 01-30-2024 End: 01-30-2024 Clinisync Result Encounter Davidson Velasco MD Work Phone: [facility] Unsolicited Start: 01-28-2024 End: 01-28-2024 Patient encounter procedure MD Davidson Velasco Work Phone: [facility] [place] Work Phone: Start: 01-28-2024 End: 01-28-2024 ambulatory Davidson Velasco [facility] Work Phone: Start: 01-12-2024 End: 01-12-2024 ambulatory DAVIDSON VELASCO Not Available Start: 07-08-2021 End: 07-08-[address] DAVIDSON VELASCO Facility:[facility]1 Start: 06-26-2021 End: 06-27-[address] DAVIDSON VELASCO Facility:[facility] Procedures Date Procedure Procedure Detail Performing Clinician Start: 01-30-2024 ALL CBC WITH AUTO DIFF Davidson Velasco MD Work Phone: Start: 01-28-2024 Pulse volume recorde r pneumoplethysmography MD Davidson Velasco Work Phone: Start: 06-26-[address] DAVIDSON OSUNA Comment on above: Performed By: #### P [facility] #### [facility] [address] [place] [address] Dr. Maximilian Baum Plan of Treatment Date Care Activity Detail Author Start: 07-15-2027 Screening for malign ant neoplasm of colon [facility] Start: 07-12-2025 End: 07-12-2025 Patient encounter procedure 07/12/2025 9:30 AM EST Office Visit [facility] [address] [place] [phone] Davidson Velasco MD [address] [place] [phone] [facility] Start: 02-06-2025 Influenza vaccination Influenza Vacc ine (#1) [facility] Start: 01-09-2025 End: 01-09-2026 Basic metabolic 1998 panel - Serum or Plasma Basic metabolic panel Lab Routine Essential hypertension, benign Expected: 01/09/2025 (Approximate), Expires: 01/09/2026 [facility] Comment on above: Expected: 01/09/2025 (Approximate), Expires: 01/09/2026 Start: 01-09-2025 End: 01-09-2026 CBC W Auto Differential panel - Blood CBC and differential Lab Routine Encounter for long-term (current) use of medications Expected: 01/09/2025 (Approximate), Expires: 01/09/2026 [facility] Comment on above: Expected: 01/09/2025 (Approximate), Expires: 01/09/2026 Start: 01-09-2025 End: 01-09-2026 Hemoglobin A1c/Hemoglobin.total in Blood Hemoglobin A1c Lab Routine Prediabetes Expected: 01/09/2025 (Approximate), Expires: 01/09/2026 [facility] Work Phone: Comment on above: Expected: 01/09/2025 (Approximate), Expires: 01/09/2026 Start: 01-09-2025 End: 01-09-2026 Hepatic function 2000 panel - Serum or Plasma Hepatic function panel Lab Routine Encounter for long-term (current) use of medications Expected: 01/09/2025 (Approximate), Expires: 01/09/2026 [facility] Comment on above: Expected: 01/09/2025 (Approximate), Expires: 01/09/2026 Start: 01-09-2025 End: 01-09-2026 Lipid 1996 panel - Serum or Plasma Lipid panel Lab Routine Class 1 obesity due to excess calories with serious comorbidity and body mass index (BMI) of 31.0 to 31.9 in adult Expected: 01/09/2025 (Approximate), Expires: 01/09/2026 [facility] Comment on above: Expected: 01/09/2025 (Approximate), Expires: 01/09/2026 Start: 01-09-2025 End: 01-09-2026 Prostate specific Ag [Mass/volume] in Serum or Plasma PSA Lab Routine Screening PSA (prostate specific antigen) Expected: 01/09/2025 (Approximate), Expires: 01/09/2026 [facility] Comment on above: Expected: 01/09/2025 (Approximate), Expires: 01/09/2026 Start: 01-09-2025 End: 01-09-2026 Thyrotropin [Units/volume] in Serum or Plasma TSH Lab Routine Class 1 obesity due to excess calories with serious comorbidity and body mass index (BMI) of 31.0 to 31.9 in adult Expected: 01/09/2025 (Approximate), Expires: 01/09/2026 [facility] Comment on above: Expected: 01/09/2025 (Approximate), Expires: 01/09/2026 Start: 01-09-2025 End: 01-09-2025 Patient encounter procedure [facility] Comment on above: Arrived Start: 07-11-2024 End: 07-11-2025 Noninvasive colorectal cancer DNA and occult blood screening [Presence] in Stool Cologuard colon cancer screening Lab Routine Colon cancer screening Expected: 07/11/2024 (Approximate), Expires: 07/11/2025 [facility] Work Phone: Comment on above: Expected: 07/11/2024 (Approximate), Expires: 07/11/2025 Start: 07-11-2024 End: 07-11-2024 Patient encounter procedure [facility] Comment on above: Arrived Start: 06-29-2024 Screening for malign ant neoplasm of colon Colorectal Cancer Screening [facility] Comment on above: Postponed from 11/29 (Patient Refused) Start: 02-07-2024 Influenza vaccination Influenza Vacc ine (#1) [facility] Start: 2014 Pneumococcal Vaccine : 65+ Years (1 of 1 - PCV) Pneumococcal Vaccine: 65+ Years (1 of 1 - PCV) [facility] Start: 11-30-1999 Pneumococcal Vaccine : 65+ Years (1 of 1 - PCV) Pneumococcal Vaccine: 65+ Years (1 of 1 - PCV) [facility] Start: 1950 Medicare Annual Wellness (AWV) Medicare Annual Wellness (AWV) [facility] Start: 1950 Screening for malign ant neoplasm of colon [facility] Payers Date Payer Category Payer Self-pay 2022 Private Health Insurance [id number] 2022 Private Health Insurance CLI [id number] 2014 Medicare [id number] 1959 Medicare [id number] 1959 Unknown [id number] 1949 Unknown [id number] 1949 Unknown [id number] 1949 Unknown [id number] 1949 Unknown [id number] 1949 Unknown [id number] [id number] Unknown [id number] [id number] Social History Date Type Detail Facility [facility] Work Phone: Start: 1950 Sex Assigned At Male F [facility] Start: 06-29-2023 [facility] tobacco [facility] Start: 06-29-2023 Tobacco use and exposure Smoke less tobacco non-user [facility] Start: 01-06-2024 End: 01-09-2025 History of Social function [facility] Start: 01-06-2024 End: 01-09-2025 [id number] Health Literacy [facility] How often do you nee d to have someone help you when you read instructions, pamphlets, or other written material from your doctor or pharmacy [SILS] Never [facility] Do you belong to any clubs or organizations such as baptism groups, unions, fraternal or athletic groups, or school groups? No [facility] Are you now , , , , never or living with a partner? [facility] How often to you hav e a drink containing alcohol? Monthly or less [facility] How many standard dr inks containing alcohol do you have on a typical day? 1 or 2 [facility] How often do you hav e 6 or more drinks on 1 occasion? Monthly [facility] Do you feel stress - tense, restless, nervous, or anxious, or unable to sleep at night because your mind is troubled all the time - these days [OSQ] Not at all [facility] (I/We) worried kiran er (my/our) food would run out before (I/we) got money to buy more. Never true [facility] Start: 1950 Sex assigned at Not on file [facility] How often do you nee d to have someone help you when you read instructions, pamphlets, or other written material from your doctor or pharmacy [SILS] Never [facility] Functional Status Date Assessment Result Facility 01-09-2025 Patient Health [facility] ionnaire 2 item (PHQ-2) [Reported] [facility] History of Present illness Narrative 01-09-2025 Davidson Vealsco MD - 01/09/2025 10:32 AM EDTMmarco Velasco MD - 01/09/2025 9:30 AM EDT Note Date & Type Note Facility 01-09-2025 History of Presen t illness Narrative Associated Problem(s): Medicare annual wellness visit, subsequent Due for labs. Discussed proper diet and regular aerobic exercise. Need aerobic exercise 5-6 days a week for 30 minutes at a time. Smaller portions and limit total calories. Cologuard normal July 2024. Tetanus every 10 years. Advised not to smoke. Images from the original note were not included. Subjective Patient ID: Alfred Cooper is a 74 y.o. male who presents for Medicare Annual Wellness Visit Subsequent (WELLNESS/). Presents for medicare annual wellness visit. Patient stable today. Weight unchanged over past year. Remains active and walks several days a week. Tries to watch diet and eat healthy. Increased fruits and vegetables. Smaller portions and limits snacking. Tries to limit total daily calories. Due for labs. Review of Systems Constitutional: Negative for fatigue. Respiratory: Negative for cough, shortness of breath and wheezing. Cardiovascular: Negative for chest pain and palpitations. Gastrointestinal: Negative for abdominal pain, diarrhea, nausea and vomiting. Genitourinary: Negative for dysuria. Objective Physical Exam Constitutional: General: He is not in acute distress. Appearance: Normal appearance. HENT: Head: Normocephalic. Right Ear: Tympanic membrane and ear canal normal. Left Ear: Tympanic membrane and ear canal normal. Eyes: Extraocular Movements: Extraocular movements intact. Pupils: Pupils are equal, round, and reactive to light. Cardiovascular: Rate and Rhythm: Normal rate and regular rhythm. Heart sounds: No murmur heard. No friction rub. No gallop. Pulmonary: Breath sounds: Normal breath sounds. No wheezing, rhonchi or rales. Abdominal: General: Bowel sounds are normal. There is no distension. Palpations: Abdomen is soft. Tenderness: There is no abdominal tenderness. There is no guarding or rebound. Musculoskeletal: General: Normal range of motion. Left lower leg: No edema. Neurological: General: No focal deficit present. Mental Status: He is alert. Cranial Nerves: No cranial nerve deficit. Deep Tendon Reflexes: Reflexes normal. Assessment/Plan Problem List Items Addressed This Visit Essential hypertension, benign Relevant Orders Basic metabolic panel Prediabetes Relevant Orders Hemoglobin A1c Encounter for long-term (current) use of medications Relevant Orders CBC and differential Hepatic function panel Screening PSA (prostate specific antigen) Relevant Orders PSA Medicare annual wellness visit, subsequent - Primary Due for labs. Discussed proper diet and regular aerobic exercise. Need aerobic exercise 5-6 days a week for 30 minutes at a time. Smaller portions and limit total calories. Cologuard normal July 2024. Tetanus every 10 years. Advised not to smoke. Class 1 obesity with serious comorbidity and body mass index (BMI) of 31.0 to 31.9 in adult Relevant Orders Lipid panel TSH documented in this encounter [facility] History of Present illness Narrative 07-11-2024 Davidson Velasco MD - 07/11/2024 10:33 AM Michael Velasco MD - 07/11/2024 10:33 AM Michael Velasco MD - 07/11/2024 10:33 AM Michael Velasco MD - 07/11/2024 9:30 AM EST Note Date & Type Note Facility 07-11-2024 History of Presen t illness Narrative Associated Problem(s): Stress incontinence, male Urinary symptoms stable and continue oxybutynin. Associated Problem(s): Seasonal allergic rhinitis due to pollen Symptoms controlled with medication and continue. Associated Problem(s): Essential hypertension, benign (CMS/HCC) BP controlled and monitor PRN. Images from the original note were not included. Subjective Patient ID: Alfred Cooper is a 73 y.o. male who presents for Follow-up (6 m ). Follow up HTN, incontinence, and allergies. Checking BP PRN and typically controlled. BP normal today. Taking medication daily and tolerating without side effects. Incontinence controlled with medication. Not voiding as often and not having urgency. No dribbling and feels like able to empty completely. Still wears pads just in case. Allergies controlled with medication. No congestion or rhinorrhea. No DIETRICH or sinus pressure. Ears not plugged or popping. Weight up 12 pounds since last visit. Not as active in winter and no regular exercise. Review of Systems Constitutional: Negative for fatigue. Respiratory: Negative for cough, shortness of breath and wheezing. Cardiovascular: Negative for chest pain and palpitations. Gastrointestinal: Negative for abdominal pain, diarrhea, nausea and vomiting. Genitourinary: Negative for dysuria. Objective Physical Exam Constitutional: General: He is not in acute distress. Appearance: Normal appearance. HENT: Head: Normocephalic. Right Ear: Tympanic membrane and ear canal normal. Left Ear: Tympanic membrane and ear canal normal. Eyes: Extraocular Movements: Extraocular movements intact. Pupils: Pupils are equal, round, and reactive to light. Cardiovascular: Rate and Rhythm: Normal rate and regular rhythm. Heart sounds: No murmur heard. No friction rub. No gallop. Pulmonary: Breath sounds: Normal breath sounds. No wheezing, rhonchi or rales. Abdominal: General: Bowel sounds are normal. There is no distension. Palpations: Abdomen is soft. Tenderness: There is no abdominal tenderness. There is no guarding or rebound. Musculoskeletal: Left lower leg: No edema. Neurological: Mental Status: He is alert. Assessment/Plan Problem List Items Addressed This Visit Essential hypertension, benign (CMS/HCC) - Primary BP controlled and monitor PRN. Seasonal allergic rhinitis due to pollen Symptoms controlled with medication and continue. Stress incontinence, male Urinary symptoms stable and continue oxybutynin. Other Visit Diagnoses Colon cancer screening Relevant Orders Cologuard colon cancer screening documented in this encounter [facility] Evaluation note Note Date & Type Note Facility Evaluation note No assessment information [facility] Work Phone: Evaluation note Note Date & Type Note Facility Evaluation note Diagnosis Essential hypertension, benign (CMS/HCC)- Primary Essential hypertension, benign Stress incontinence, male Seasonal allergic rhinitis due to pollen Essential hypertension, benign (CMS/HCC)- Primary Essential hypertension, benign Stress incontinence, male Intermittent claudication (CMS/HCC) Unspecified peripheral vascular disease Seasonal allergic rhinitis due to pollen Screening PSA (prostate specific antigen) Special screening for malignant neoplasm of prostate Encounter for long-term (current) use of medications Encounter for long-term (current) use of other medications Cerebrovascular disease Unspecified cerebrovascular disease Prediabetes Other abnormal glucose Essential hypertension, benign (CMS/HCC)- Primary Essential hypertension, benign Stress incontinence, male Seasonal allergic rhinitis due to pollen Colon cancer screening Special screening for malignant neoplasms, colon documented in this encounter [facility] Evaluation note Note Date & Type Note Facility Evaluation note Diagnosis Essential hypertension, benign (CMS/HCC)- Primary Essential hypertension, benign Stress incontinence, male Seasonal allergic rhinitis due to pollen Essential hypertension, benign (CMS/HCC)- Primary Essential hypertension, benign Stress incontinence, male Intermittent claudication (CMS/HCC) Unspecified peripheral vascular disease Seasonal allergic rhinitis due to pollen Screening PSA (prostate specific antigen) Special screening for malignant neoplasm of prostate Encounter for long-term (current) use of medications Encounter for long-term (current) use of other medications Cerebrovascular disease Unspecified cerebrovascular disease Prediabetes Other abnormal glucose Essential hypertension, benign (CMS/HCC)- Primary Essential hypertension, benign Stress incontinence, male Seasonal allergic rhinitis due to pollen Colon cancer screening Special screening for malignant neoplasms, colon Cerebrovascular disease Unspecified cerebrovascular disease Essential hypertension, benign (CMS/HCC) Essential hypertension, benign documented in this encounter [facility] Evaluation note Note Date & Type Note Facility Evaluation note Diagnosis Essential hypertension, benign (CMS/HCC)- Primary Essential hypertension, benign Stress incontinence, male Seasonal allergic rhinitis due to pollen Essential hypertension, benign (CMS/HCC)- Primary Essential hypertension, benign Stress incontinence, male Intermittent claudication (CMS/HCC) Unspecified peripheral vascular disease Seasonal allergic rhinitis due to pollen Screening PSA (prostate specific antigen) Special screening for malignant neoplasm of prostate Encounter for long-term (current) use of medications Encounter for long-term (current) use of other medications Cerebrovascular disease Unspecified cerebrovascular disease Prediabetes Other abnormal glucose Essential hypertension, benign (CMS/HCC)- Primary Essential hypertension, benign Stress incontinence, male Seasonal allergic rhinitis due to pollen Colon cancer screening Special screening for malignant neoplasms, colon Cerebrovascular disease Unspecified cerebrovascular disease documented in this encounter [facility] Evaluation note Note Date & Type Note Facility Evaluation note Diagnosis Essential hypertension, benign- Primary Essential hypertension, benign Stress incontinence, male Seasonal allergic rhinitis due to pollen Essential hypertension, benign- Primary Essential hypertension, benign Stress incontinence, male Intermittent claudication Unspecified peripheral vascular disease Seasonal allergic rhinitis due to pollen Screening PSA (prostate specific antigen) Special screening for malignant neoplasm of prostate Encounter for long-term (current) use of medications Encounter for long-term (current) use of other medications Cerebrovascular disease Unspecified cerebrovascular disease Prediabetes Other abnormal glucose Essential hypertension, benign- Primary Essential hypertension, benign Stress incontinence, male Seasonal allergic rhinitis due to pollen Colon cancer screening Special screening for malignant neoplasms, colon Medicare annual wellness visit, subsequent- Primary Prediabetes Other abnormal glucose Class 1 obesity due to excess calories with serious comorbidity and body mass index (BMI) of 31.0 to 31.9 in adult Encounter for long-term (current) use of medications Encounter for long-term (current) use of other medications Essential hypertension, benign Essential hypertension, benign Screening PSA (prostate specific antigen) Special screening for malignant neoplasm of prostate documented in this encounter [facility] Summary Purpose Family History No Family History Records FoundNo Family History Records FoundNo Family History Records Found Advance Directives No Advanced Directives Records Found Advance Directive Response Recorded Date/ Time Advance Directives No January 22, 2024 10:47am Chief Complaint and Reason for Visit Chief Complaint i67.9 i73.9 Additional Source Comments (unrecognized sect ion and content) No Status Records FoundNo Status Records FoundNo Status Records Found INFORMATION SOURCE (unrecogn ized section and content) DATE CREATED AUTHOR 07/11/2021 [facility] DATE CREATED AUTHOR AUTHOR'S ORGANIZ ATION 02/03/2024 [facility] DATE CREATED AUTHOR AUTHOR'S ORGANIZ ATION 01/10/2025 [facility] Care Teams (unrecognized sec tion and content) Team Status: Inactive Member Role Status Dates Davidson Velasco MD Attending Provider Active Star t: January 28, 2024 End: January 28, 2024 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 Start Date End Date Davidson Velasco MD [address] [place] [address] PCP - General Family Medicine 06/29/23 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 Start Date End Date Davidson Velasco MD [address] [place] [address] PCP - General Family Medicine 06/29/23 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 Start Date End Date Davidson Velasco MD [address] [place] [address] PCP - General Family Medicine 06/29/23 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 Start Date End Date Davidson Velasco MD [address] [place] [phone] PCP - General Family Medicine 06/29/23 Davidson Velasco MD [address] [place] [address] PCP - ACO Reach 07/15/24 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 Start Date End Date Davidson Velasco MD [address] [place] [address] PCP - General Family Medicine 06/29/23 Davidson Velasco MD [address] [place] [address] PCP - ACO Reach 07/15/24 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 Start Date End Date Davidson Velasco MD [address] [place] [phone] PCP - General Family Medicine 06/29/23 Davidson Velasco MD [address] [place] [phone] PCP - ACO Reach 07/15/24 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 Start Date End Date Davidson Velasco MD [address] [place] [phone] PCP - General [facility] 06/29/23 Davidsno Velasco MD [address] [place] [phone] PCP - ACO Reach 07/15/24 Goals (unrecognized section and content) Goals may be documented in a n alternate section Reason for Visit (unrecogniz ed section and content) Reason Comments Follow-up 6 m Reason Onset Date Comments Med Refill 07/25/2024 Reason Onset Date Comments Med Refill 08/01/2024 Reason Comments Medicare Annual Wellness Visit Subsequen t WELLNESS FOR RECORDS PERTAINING TO PATIENTS WHO ARE OR HAVE BEEN ENROLLED IN A CHEMICAL DEPENDENCY/SUBSTANCEABUSE PROGRAM, SOME INFORMATION MAY BE OMITTED. This clinical summary was aggregated from multiple sources. Caution should be exercised in using it in the provision of clinical care. This summary normalizes information from multiple sources, and as a consequence, information in this document may materially change the coding, format and clinical context of patient data. In addition, data may be omitted in some cases. CLINICAL DECISIONS SHOULD BE BASED ON THE PRIMARY CLINICAL RECORDS. [employer] [facility]. provides no warranty or guarantee of the accuracy or completeness of information in this document.
[2025-01-31 09:15] LABS: Alanine Aminotransferase 41 U/L (16-63); Albumin Globulin Ratio 0.9; Albumin Level 3.8 g/dL (3.4-5.0); Alkaline Phosphatase 32 U/L (46-116); Anion Gap 10.4; Aspartate Amino Transferase 22 U/L (15-37); Blood Urea Nitrogen 17.0 mg/dL (7.0-18.0); Calcium 8.8 mg/dL (8.5-10.1); Carbon Dioxide 29.5 mmol/L (21.0-32.0); Chloride 106 mmol/L (98-107); Cholesterol 89 mg/dL (<=200); Estimated GFR (African America >60 (>=60 mL/min/1.73m^2); Estimated GFR (Non-African Ame >60 (>=60 mL/min/1.73m^2); Globulin 4.2 g/dL; Glucose 110 mg/dL (74-106); HDL Cholesterol 45 mg/dL (40-60); Potassium 3.9 mmol/L (3.5-5.1); Sodium 142 mmol/L (136-145); Thyroid Stimulating Hormone 4.007 uIU/mL (0.358-3.740); Total Protein 8.0 g/dL (6.4-8.2); Triglycerides 92 mg/dL (<=150); VLDL CHOLESTEROL 18.4 mg/dL
[2025-01-31 10:00] LABS: Hematocrit 45.7 % (42.0-54.0); Hemoglobin 14.9 g/dL (14.0-18.0); Immature Granulocytes Abs Auto 0.00 10^3/uL (0.00-0.03); Immature Granulocytes Pct Auto 0.0 % (0.0-0.5); Lymphocytes Absolute Auto 1.5 10^3/uL (1.2-3.8); Mean Corpuscular HGB Conc 32.6 g/dL (29.9-35.2); Mean Corpuscular Hemoglobin 27.8 pg (25.9-34.0); Mean Corpuscular Volume 85.3 fL (80.0-94.0); Platelet Count 213 10^3/uL (150-450); Red Blood Count 5.36 10^6/uL (4.70-6.10); White Blood Count 5.5 10^3/uL (4.0-11.0)
== END 2025-01-31 08:14 | disposition home or self-care (01) ==
LOC: LAB 08:15
PROVIDERS: PCP Family Medicine; Visit Provider Family Medicine
DX: R73.03 Prediabetes (principal); I10 Essential (primary) hypertension; Z79.899 Other long term (current) drug therapy; E66.811 Obesity, class 1; E66.09 Other obesity due to excess calories; Z68.31 Body mass index [BMI] 31.0-31.9, adult; Z12.5 Encounter for screening for malignant neoplasm of prostate
CPT/HCPCS: 36415; 80048; 80061; 80076; 83036; 84443; 85025; G0103